=== PATIENT | female | born 2000 | race Two or more races ===

== ENCOUNTER 2020-05-07 17:00 | Emergency (ER) | payer OTHER ==
[~2020-05-07] VITALS: Ht 154.9 cm; Wt 61.5 kg
[2020-05-07 17:12] VITALS: BP 112/71
--- NOTE | 2020-05-07 17:31 | PHYS DOC ---
Past History Past Medical History: No Pertinent History Past Surgical History: No Surgical History Alcohol Use: Occasionally General Adult EDM: Chief Complaint: ANIMAL BITE HPI: HPI: ".. We were sitting in bed.. and our new dog Josh.. attacked my baby.. I grabbed the dog.. and it bit me on my Rt. elbow.. " Patient is a 20 year old female who presents with above hx and complaints of dog bite to Rt. elbow, by a family dog adopted 2 months ago from the [facility]. Dog is reportedly up-to-date with vaccinations. Attack occurred while she was attempting to pull the dog off her daughter. Patient distal neurovascular intact. Has obvious bite puncture wounds to right elbow area. Patient is unsure of her last tetanus up-to-date. No recent travel outside the [facility]. No history immunosuppression. Review of Systems: Review of Systems: Constitutional: Denies fever or chills Eyes: Denies change in visual acuity HENT: Denies nasal congestion or sore throat Respiratory: Denies cough or shortness of breath Cardiovascular: Denies chest pain or edema GI: Denies abdominal pain, nausea, vomiting, bloody stools or diarrhea : Denies dysuria Musculoskeletal: Complains of right elbow pain at area of dog bite Integument: Denies rash Neurologic: Denies headache, focal weakness or sensory changes Endocrine: Denies polyuria or polydipsia Lymphatic: Denies swollen glands Psychiatric: Denies depression or anxiety Heart Score: Risk Factors: Risk Factors: DM, Current or recent (<one month) smoker, HTN, HLP, family history of CAD, obesity. Risk Scores: Score 0 - 3: 2.5% MACE over next 6 weeks - Discharge Home Score 4 - 6: 20.3% MACE over next 6 weeks - Admit for Clinical Observation Score 7 - 10: 72.7% MACE over next 6 weeks - Early Invasive Strategies Family History: Family History: Noncontributory Current Medications: Current Meds: See nursing for home meds Allergies: Allergies: Allergies Coded Allergies Type Severity Reaction Last Updated Verified No Known Drug Allergies 05/07/20 No Physical Exam: PE: Constitutional: Well developed, well nourished, moderate acute distress, non- toxic appearance. [] HENT: Normocephalic, atraumatic, bilateral external ears normal, oropharynx moist, no oral exudates, nose normal. [] Eyes: PERRLA, EOMI, conjunctiva normal, no discharge. [] Neck: Normal range of motion, no tenderness, supple, no stridor. [] Cardiovascular:Heart rate regular rhythm, no murmur [] Lungs & Thorax: Bilateral breath sounds clear to auscultation [] Abdomen: Bowel sounds normal, soft, no tenderness, no masses, no pulsatile masses. [] Skin: Warm, dry, no erythema, no rash. [] Back: No tenderness, no CVA tenderness. [] Extremities: No tenderness, no cyanosis, no clubbing, ROM intact, no edema. Except findings of dog bite right elbow area. Neurologic: Alert and oriented X 3, normal motor function, normal sensory fu nction, no focal deficits noted. [] Psychologic: Affect normal, judgement normal, mood normal. [] Current Patient Data: Vital Signs: Vital Signs Date Time Temp Pulse Resp B/P (MAP) Pulse Ox O2 Delivery O2 Flow Rate FiO2 05/07/20 17:12 99.5 88 18 112/71 (85) 99 Room Air EKG: EKG: [] Radiology/Procedures: Radiology/Procedures: [][place] [id number] IMAGING REPORT Signed PATIENT: BRIELLE AVELAR ACCOUNT: [id number] : 2000 LOCATION: ER AGE: 20 SEX: F EXAM STATUS: PRE ER ORD. PHYSICIAN: TIMMY ELLIOTT MD REASON: DOG BITE PROCEDURE: ELBOW RIGHT 3V Exam: Right elbow 3 views INDICATION: Dog bite TECHNIQUE: Frontal, lateral and oblique views of the right elbow Comparisons: None FINDINGS: Bone mineralization is normal. No acute or healed fractures. Soft tissues are unremarkable. Joint spaces are well-maintained. IMPRESSION: No acute osseous abnormality. No radiopaque foreign body identified. Electronically signed by: Argelia Phelps MD (05/07/2020 7:05 PM) [facility] DICTATED AND SIGNED BY: ARGELIA PHELPS MD DATE: 05/07/20 950 CC: TIMMY ELLIOTT MD; PCP,NO ~ Course & Med Decision Making: Course & Med Decision Making Pertinent Labs and Imaging studies reviewed. (See chart for details) Dog bite wounds cleaned with soap and water. Patient must make sure dog is confined for the next 10 to 14 days to monitor for infection. Do not kill the dog at this time. Must be monitor for rabies. Patient to massage Polysporin in area of dog bite 4 times a day. Patient take Augmentin 875 twice a day. Patient may take Tylenol and ibuprofen for pain. Follow-up primary care. Return if any concerns. Impression: 1. Dog bite [] Dragon Disclaimer: Ari Disclaimer: This electronic medical record was generated, in whole or in part, using a voice recognition dictation system. Departure Departure: Disposition: HOME/RESIDENCE PRIOR TO ADM Condition: STABLE Referrals: PCP,NO (PCP) Scripts Bacitracin/Polymyxin B Sulfate (POLYSPORIN OINTMENT) 28.3 Gm Oint...g. 28.3 GM TP QID for dog bite for 90 Days, MISC Prov: TIMMY ELLIOTT MD 05/07/20 Amoxicillin/Potassium Clav (AUGMENTIN 875-125 TABLET) 1 Each Tablet 1 TAB PO BID for dog bite for 10 Days, #20 TAB 0 Refills Prov: TIMMY ELLIOTT MD 05/07/20 Ari Disclaimer This chart was dictated in whole or in part using Voice Recognition software in a busy, high-work load, and often noisy Emergency Department environment. It may contain unintended and wholly unrecognized errors or omissions. TIMMY ELLIOTT MD May 07, 2020 17:31
[2020-05-07] MEDS ORDERED: cefTRIAXone IM 1 GM VIAL IM ONE (18:15)
[2020-05-07] MEDS ORDERED: BACITRACIN ZINC TOPICAL OINT PACKET. TP ONE (18:15)
[2020-05-07] MEDS ORDERED: HYDROcodon/IBUPROFEN 7.5/200MG 1 TAB TABLET PO ONE (18:15)
[2020-05-07] MEDS ORDERED: DIPH,PERTUSS(ACELL),TET VAC/PF 0.5 ML SYRINGE. VAX IM ONE (18:30)
--- NOTE | 2020-05-07 19:09 | RAD ---
Exam: Right elbow 3 views INDICATION: Dog bite TECHNIQUE: Frontal, lateral and oblique views of the right elbow Comparisons: None FINDINGS: Bone mineralization is normal. No acute or healed fractures. Soft tissues are unremarkable. Joint spaces are well-maintained. IMPRESSION: No acute osseous abnormality. No radiopaque foreign body identified. Electronically signed by: Argelia Hanna MD (05/07/2020 7:05 PM) [facility]
[2020-05-07] MEDS ORDERED: BACI28.34 TP (19:28)
[2020-05-07] MEDS ORDERED: AMOX1TAB61 PO (19:28)
== END 2020-05-07 19:58 | disposition home or self-care (01) ==
LOC: ER 17:00
DX: S51.051A Open bite, right elbow, initial encounter (principal); W54.0XXA Bitten by dog, initial encounter; Y93.89 Activity, other specified; Y92.89 Other specified places as the place of occurrence of the external cause; Y99.8 Other external cause status
CPT/HCPCS: 73080; 90471; 90715; 96372; 99284; J0696; 99283

== ENCOUNTER 2020-09-17 01:49 | Emergency (ER) | payer OTHER ==
[~2020-09-17] VITALS: Ht 154.9 cm; Wt 61.5 kg
[~2020-09-17 01:49] MED LIST: AMOX1TAB61 PO; BACI28.34 TP
--- NOTE | 2020-09-17 01:56 | PHYS DOC ---
Past History Past Medical History: No Pertinent History Past Surgical History: No Surgical History Alcohol Use: Occasionally Adult General Chief Complaint Chief Complaint: VOMITING IN HPI HPI Patient is a 20-year-old female approximately 9 weeks who presents with a chief complaint of approximately 2 weeks of nausea and vomiting on and off. [place] some Zofran to take home which has only been a minimal help. States that this is her second child and did not have any issues with nausea vomiting during the first . States over the last day she has been able to eat or drink anything due to the vomiting. Denies any vaginal bleeding, discharge or gushes of fluid. Recent travel, traumas, illnesses, fevers, chest pain, shortness of breath, dysuria, hematuria or blood in the stool. Denies any tobacco, alcohol or drug use. Review of Systems Review of Systems Review of systems otherwise unremarkable except noted in HPI Allergies Allergies Allergies Coded Allergies Type Severity Reaction Last Updated Verified No Known Drug Allergies 05/07/20 No Physical Exam Physical Exam Constitutional: Well developed, well nourished, no acute distress, non-toxic appearance. [] Eyes: conjunctiva normal, no discharge. [] Neck: Normal range of motion, Cardiovascular:Heart rate regular rhythm, no murmur [] Lungs & Thorax: Bilateral breath sounds clear to auscultation [] Abdomen: soft, no tenderness, no masses, no pulsatile masses. [] Skin: Warm, dry, no erythema, no rash. [] Back: No tenderness, no CVA tenderness. [] Extremities: No tenderness, no cyanosis, no clubbing, ROM intact, no edema. [] Neurologic: Alert and oriented X 3, normal motor function, normal sensory function, no focal deficits noted. [] Psychologic: Affect normal, judgement normal, mood normal. [] EKG EKG [] Radiology/Procedures Radiology/Procedures [] Heart Score Risk Factors: Risk Factors: DM, Current or recent (<one month) smoker, HTN, HLP, family history of CAD, obesity. Risk Scores: Risk Factors: DM, Current or recent (<one month) smoker, HTN, HLP, family history of CAD, obesity. Course & Med Decision Making Course & Med Decision Making Patient is a 20-year-old female at 9 weeks gestation who presents with a chief complaint of nausea vomiting Vital signs not concerning. Physical exam noted above. Patient placed on monitor with IV access established. Started on IV fluid resuscitation and given Reglan and diphenhydramine. Gave dose of Zofran and second liter of fluid. On reassessment patient states she was feeling much better and would like to be discharged home. Gave antiemetic prescriptions. Gave diet recommendations. Advised to call JOURNEY[facility] [employer] OPERATOR first thing this morning to update on ED visit. Advised to come back to the ED with new or concerning symptoms. Patient grateful, verbalized understanding and agreed with plan of discharge. [] Dragon Disclaimer Dragon Disclaimer This electronic medical record was generated, in whole or in part, using a voice recognition dictation system. Departure Departure: Impression: Primary Impression: Nausea/vomiting in Disposition: 01 DC HOME SELF CARE/HOMELESS Condition: IMPROVED Referrals: PCP,UNKNOWN (PCP) BHAVESH SANZ MD Patient Instructions: Diet - Hyperemesis Gravidarum, Hyperemesis Gravidarum, Nausea and Vomiting Additional Instructions: Please read all of the attached information to help understand your diagnosis and ways to manage this at home. Please take all your medications as prescribed. Please eat a light diet over the next few days and stay away from any heavy foods. Please stay well-hydrated. Please call your [facility] [employer] OPERATOR first thing this morning to update on ED visit and set up a follow-up visit. Please come back to the ED with new or concerning symptoms. Scripts Metoclopramide Hcl (REGLAN) 10 Mg Tablet 1 TAB PO TID PRN PRN for NAUSEA for 10 Days, #30 TAB 0 Refills before food and bedtime Prov: SELINA KELLY MD 09/17/20 Metoclopramide Hcl (REGLAN) 10 Mg Tablet 1 TAB PO TID PRN PRN for NAUSEA for 10 Days, #30 TAB 0 Refills before food and bedtime Prov: SELINA KELLY MD 09/17/20 Ondansetron Hcl (ZOFRAN) 4 Mg Tablet 1 TAB PO TID PRN for NAUSEA for 10 Days, #30 TAB Prov: SELINA KELLY MD 09/17/20 SELINA KELLY MD Sep 17, 2020 01:56
[2020-09-17] MEDS ORDERED: METOCLOPRAMIDE HCL 10 MG/2 ML VIAL. IVP ONE (02:30)
[2020-09-17] MEDS ORDERED: diphenhydrAMINE 50 MG/ML VIAL IVP ONE (02:30)
[2020-09-17] MEDS ORDERED: IV RINGERS SOLUTION,LACTATED 1,000 ML IV ONE ×2 (02:30→03:15)
[2020-09-17] MEDS ORDERED: ONDANSETRON PF 4 MG/2 ML VIAL. IVP ONE (03:00)
[2020-09-17] MEDS ORDERED: ONDA4TAB7 PO (03:35)
[2020-09-17] MEDS ORDERED: METO10TA81 PO ×2 (03:35→03:37)
[2020-09-17 04:05] VITALS: BP 118/67
== END 2020-09-17 04:15 | disposition home or self-care (01) ==
LOC: ER 01:49
DX: O21.8 Other vomiting complicating pregnancy (principal); Z3A.09 9 weeks gestation of pregnancy
CPT/HCPCS: 96361; 96374; 96375; 99285; J1200; J2405; J2765; J7120; 96365; 96366

== ENCOUNTER 2020-09-23 21:07 | Emergency (ER) | payer OTHER ==
[~2020-09-23] VITALS: Ht 154.9 cm; Wt 57.5 kg
[~2020-09-23 21:07] MED LIST changes: +METO10TA81 PO; +ONDA4TAB7 PO
[2020-09-23] MEDS ORDERED: IV RINGERS SOLUTION,LACTATED 1,000 ML IV SCH (22:15)
[2020-09-23] MEDS ORDERED: FAMOTIDINE 20 MG/2 ML VIAL IVP ONE (22:15)
[2020-09-23] MEDS ORDERED: ONDANSETRON PF 4 MG/2 ML VIAL. IVP ONE (22:15)
[2020-09-23 22:25] LABS: BARBITURATES NEG (NEG); BENZODIAZEPINES NEG (NEG); CANNABINOIDS NEG (NEG); COCAINE NEG (NEG); METHADONE NEG (NEG); OPIATES NEG (NEG); PHENCYCLIDINE NEG (NEG)
[2020-09-23 22:35] LABS: AMPHETAMINE/METHAMPHETAMINE NEG (NEG)
[2020-09-23 22:44] LABS: BACTERIA,URINE 0 /HPF (0-FEW); BILIRUBIN,URINE NEG (NEG); CLARITY,URINE CLEAR; COLOR,URINE YELLOW; GLUCOSE,URINE NEG (NEG); NITRITE,URINE NEG (NEG); RBC,URINE 0 /HPF (0-2); SQUAMOUS EPITHELIAL CELL,UR OCC /LPF; WBC,URINE OCC /HPF (0-4)
[2020-09-23 23:14] LABS: BASO % 0 % (0-3); EOS % 1 % (0-3); HEMATOCRIT 34.6 % (36.0-47.0); HEMOGLOBIN 11.7 g/dL (12.0-15.5); LYMPH # 1.4 x10^3/uL (1.0-4.8); LYMPH % 25 % (24-48); MEAN CORPUSCULAR HEMOGLOBIN 30 pg (25-35); MEAN CORPUSCULAR HGB CONC 34 g/dL (31-37); MEAN CORPUSCULAR VOLUME 89 fL (79-100); MONO # 0.9 x10^3/uL (0.0-1.1); MONO % 16 % (0-9); NEUT # 3.3 x10^3uL (1.8-7.7); NEUT % 57 % (31-73); PLATELET COUNT 199 x10^3/uL (140-400); RED BLOOD COUNT 3.88 x10^6/uL (3.50-5.40); RED CELL DISTRIBUTION WIDTH 12.9 % (11.5-14.5); WHITE BLOOD COUNT 5.7 x10^3/uL (4.0-11.0)
--- NOTE | 2020-09-23 23:22 | PHYS DOC ---
Past History Past Medical History: No Pertinent History, Anemia, Migraines Past Surgical History: No Surgical History Alcohol Use: None General Adult EDM: Chief Complaint: VAGINAL BLEEDING HPI: HPI: ".. I was having some spotting.. but it now seems like it stopped.. .some cramps.. I am about 9 weeks .. I got a JUNIOR QA ANALYST/ OB apt. pending... .. but it not until next couple weeks. 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 Patient advises spotting is currently quit on arrival to the emergency department. Patient is 3, para 1 and 1 miscarriage. Patient estimates she is approximately 9 weeks . Has remote history of an STD when she was a teenager chlamydia which was treated. Does have a pending JUNIOR QA ANALYST appointment in October scheduled through [place]. Patient states her blood type is O+ by her dog tags. Patient denies any trauma. No recent travel. 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 Patient has previous delivery without problems or eclampsia, child is currently 2 years old. And healthy. Patient has had some problems taking her vitamins. No history of severe ill contacts. History of recent travel. Patient was seen on 09/17/2020 with a complaint of nausea and vomiting-and had a diagnosis of hyperemesis gravidarum. Patient is somewhat anxious about this since she had 1 previous miscarriage. Patient has yet has not had an ultrasound. Review of Systems: Review of Systems: Constitutional: Denies fever or chills Eyes: Denies change in visual acuity HENT: Denies nasal congestion or sore throat Respiratory: Denies cough or shortness of breath Cardiovascular: Denies chest pain or edema GI: Complains of pelvic cramping abdominal pain, nausea,. And vaginal spotting. Denies current vomiting, bloody stools or diarrhea did have an episode of hyperemesis gravidarum on 09/17/2020. : Denies dysuria Musculoskeletal: Denies back pain or joint pain Integument: Denies rash Neurologic: Denies headache, focal weakness or sensory changes Endocrine: Denies polyuria or polydipsia Lymphatic: Denies swollen glands Psychiatric: Denies depression or anxiety Family History: Family History: Noncontributory to presentation Current Medications: Current Meds: Current Medications Medications (Trade) Dose Ordered Sig/Nancy Start Time Stop Time Status Last Admin Dose Admin Famotidine (Pepcid Vial) 20 mg 1X ONCE 09/23/20 22:15 09/23/20 22:16 DC Lactated Ringer's 1,000 ml @ 1,000 mls/hr Q1H 09/23/20 22:15 09/23/20 23:14 DC Ondansetron HCl (Zofran) 8 mg 1X ONCE 09/23/20 22:15 09/23/20 22:16 DC Allergies: Allergies: Allergies Coded Allergies Type Severity Reaction Last Updated Verified No Known Drug Allergies 09/23/20 No Physical Exam: PE: Constitutional: Well developed, well nourished, no acute distress, non-toxic appearance. [] HENT: Normocephalic, atraumatic, bilateral external ears normal, oropharynx moist, no oral exudates, nose normal. [] Eyes: PERRLA, EOMI, conjunctiva normal, no discharge. [] Neck: Normal range of motion, no tenderness, supple, no stridor. [] Cardiovascular:Heart rate regular rhythm, no murmur [] Lungs & Thorax: Bilateral breath sounds equal apex and clear on auscultation [] Abdomen: Bowel sounds normal, soft, mild lower pelvic tenderness, no masses, no pulsatile masses. [] Vaginal exam no active bleeding from os. Does have some remnants of old blood. Rectal hard stool. Skin: Warm, dry, no erythema, no rash. [] Back: No tenderness, no CVA tenderness. [] Extremities: No tenderness, no cyanosis, no clubbing, ROM intact, no edema. [] Neurologic: Alert and oriented X 3, normal motor function, normal sensory function, no focal deficits noted. [] DTRs +2 patella and brachial. Psychologic: Affect anxious, judgement normal, mood normal. [] Current Patient Data: Labs: Laboratory Tests Test 09/23/20 21:59 09/23/20 22:11 09/23/20 22:45 Urine Collection Type Unknown Urine Color Yellow Urine Clarity Clear Urine pH 6.5 Urine Specific [place] 1.025 Urine Protein Neg (NEG-TRACE) Urine Glucose (UA) Neg mg/dL (NEG) Urine Ketones (Stick) Trace mg/dL (NEG) Urine Blood Neg (NEG) Urine Nitrite Neg (NEG) Urine Bilirubin Neg (NEG) Urine Urobilinogen Dipstick 4.0 mg/dL (0.2 mg/dL) Urine Leukocyte Esterase Neg (NEG) Urine RBC 0 /HPF (0-2) Urine WBC Occ /HPF (0-4) Urine Squamous Epithelial Cells Occ /LPF Urine Bacteria 0 /HPF (0-FEW) Urine Opiates Screen Neg (NEG) Urine Methadone Screen Neg (NEG) Urine Barbiturates Neg (NEG) Urine Phencyclidine Screen Neg (NEG) Urine Amphetamine/Methamphetamine Neg (NEG) Urine Benzodiazepines Screen Neg (NEG) Urine Cocaine Screen Neg (NEG) Urine Cannabinoids Screen Neg (NEG) Urine Ethyl Alcohol Neg (NEG) POC Urine HCG, Qualitative hcg positive (Negative) White Blood Count 5.7 x10^3/uL (4.0-11.0) Red Blood Count 3.88 x10^6/uL (3.50-5.40) Hemoglobin 11.7 g/dL (12.0-15.5) L Hematocrit 34.6 % (36.0-47.0) L Mean Corpuscular Volume 89 fL (79-100) Mean Corpuscular Hemoglobin 30 pg (25-35) Mean Corpuscular Hemoglobin Concent 34 g/dL (31-37) Red Cell Distribution Width 12.9 % (11.5-14.5) Platelet Count 199 x10^3/uL (140-400) Neutrophils (%) (Auto) 57 % (31-73) Lymphocytes (%) (Auto) 25 % (24-48) Monocytes (%) (Auto) 16 % (0-9) H Eosinophils (%) (Auto) 1 % (0-3) Basophils (%) (Auto) 0 % (0-3) Neutrophils # (Auto) 3.3 x10^3uL (1.8-7.7) Lymphocytes # (Auto) 1.4 x10^3/uL (1.0-4.8) Monocytes # (Auto) 0.9 x10^3/uL (0.0-1.1) Eosinophils # (Auto) 0.0 x10^3/uL (0.0-0.7) Basophils # (Auto) 0.0 x10^3/uL (0.0-0.2) Vital Signs: Vital Signs Date Time Temp Pulse Resp B/P (MAP) Pulse Ox O2 Delivery O2 Flow Rate FiO2 09/23/20 21:55 98.0 101 18 116/72 (87) 99 Room Air EKG: EKG: [] Radiology/Procedures: Radiology/Procedures: [][address] [id number] IMAGING REPORT Signed PATIENT: BRIELLE AVELAR ACCOUNT: [id number] : 2000 LOCATION: ER AGE: 20 SEX: F EXAM STATUS: REG ER ORD. PHYSICIAN: TIMMY ELLIOTT MD REASON: bleeding, preg. pain PROCEDURE: PREG 1ST TRIMESTER US OB 14+ WKS History: Reason: bleeding, preg. pain / Spl. Instructions: / History: Comparison: None. Technique: Grayscale and color Doppler imaging of the pelvis was performed using transabdominal technique. Findings: The uterus measures 9.5 x 9.0 x 7.5 cm. Single intrauterine gestational sac with regular appearance. Normal appearance of the amniotic fluid. Yolk sac is identified. Fetus is identified with crown- rump length 2.8 cm. Estimated gestational age by ultrasound 9 weeks 5 days. heart rate 169 bpm. Cervical length 3.7 cm. Right ovary measures 3.1 x 2.0 x 1.9 cm. Left ovary measures 2.7 x 1.3 x 1.3 cm. Normal Doppler flow to the ovaries bilaterally. No adnexal masses are seen. IMPRESSION: 1. Single intrauterine with gestational age 9 weeks 5 days and heart rate 169 bpm. Electronically signed by: David Hernández DO (09/23/2020 11:24 PM) [facility] DICTATED AND SIGNED BY: DAVID HERNÁNDEZ DO DATE: 09/23/20 3257 CC: TIMMY ELLIOTT MD; PCP,UNKNOWN ~MTH0 0 Heart Score: Risk Factors: Risk Factors: DM, Current or recent (<one month) smoker, HTN, HLP, family history of CAD, obesity. Risk Scores: Score 0 - 3: 2.5% MACE over next 6 weeks - Discharge Home Score 4 - 6: 20.3% MACE over next 6 weeks - Admit for Clinical Observation Score 7 - 10: 72.7% MACE over next 6 weeks - Early Invasive Strategies Course & Med Decision Making: Course & Med Decision Making Pertinent Labs and Imaging studies reviewed. (See chart for details) Continue vitamins. If unable to tolerate vitamins consider taking 2 Flintstones chewable with iron. Push fluids. Follow-up pending cultures. Take Zofran 8 mg up to 4 times a day for active vomiting. Keep follow-up with MANAGER PRESENTATION. Establish plan on where you plan to deliver child.. Consider further follow-up at the hospital where you plan to deliver for continuity of care. Take copy of ultra sound with you on follow up to overseamer. Impression: 1. Threatened 2. Intrauterine 9 weeks 5 days- heart rate 165 3. Mild anemia hemoglobin 11.5 4. Blood type O+ positive 5. ED DC date is 04-25-[address] [facility] [id number],[phone] [] Ari Disclaimer: Ari Disclaimer: This electronic medical record was generated, in whole or in part, using a voice recognition dictation system. Departure Departure: Referrals: PCP,UNKNOWN (PCP) Ari Disclaimer This chart was dictated in whole or in part using Voice Recognition software in a busy, high-work load, and often noisy Emergency Department environment. It may contain unintended and wholly unrecognized errors or omissions. TIMMY ELLIOTT MD Sep 23, 2020 23:22
--- NOTE | 2020-09-23 23:26 | RAD ---
US OB 14+ WKS History: Reason: bleeding, preg. pain / Spl. Instructions: / History: Comparison: None. Technique: Grayscale and color Doppler imaging of the pelvis was performed using transabdominal techn ique. Findings: The uterus measures 9.5 x 9.0 x 7.5 cm. Single intrauterine gestational sac with regular appearance. Normal appearance of the amniotic fluid. Yolk sac is identified. Fetus is identified with crown-rump length 2.8 cm. Estimated gestational age by ultrasound 9 weeks 5 days. heart rate 169 bpm. Cervical length 3.7 cm. Right ovary measures 3.1 x 2.0 x 1.9 cm. Left ovary measures 2.7 x 1.3 x 1.3 cm. Normal Doppler flow to the ovaries bilaterally. No adnexal masses are seen. IMPRESSION: 1. Single intrauterine with gestational age 9 weeks 5 days and heart rate 169 bpm. Electronically signed by: David Hernández DO (09/23/2020 11:24 PM) [facility]
[2020-09-23 23:27] LABS: CALCIUM 8.6 mg/dL (8.5-10.1); CREATININE 0.4 mg/dL (0.6-1.0); GFR 199.6; POTASSIUM 3.6 mmol/L (3.5-5.1)
[2020-09-23 23:33] LABS: ALBUMIN 3.2 g/dL (3.4-5.0); DIRECT BILIRUBIN 0.2 mg/dL (0.0-0.2); TOTAL BILIRUBIN 0.4 mg/dL (0.2-1.0)
[2020-09-24 00:10] VITALS: BP 115/67
[2020-09-27 22:11] LABS: CHLAMYDIA PROBE Negative (Negative)
== END 2020-09-24 00:15 | disposition home or self-care (01) ==
LOC: ER 21:07
DX: O20.0 Threatened abortion (principal); D64.9 Anemia, unspecified; G43.909 Migraine, unspecified, not intractable, without status migrainosus; Z3A.09 9 weeks gestation of pregnancy
CPT/HCPCS: 36415; 76801; 80048; 80076; 80307; 81001; 81025; 83690; 84702; 85025; 85610; 85730; 86900; 86901; 87491; 87591; 96361; 96374; 96375; 99284; J2405; J3490; J7120